=== PATIENT | male | born 1960 | race African-American/Black ===

== ENCOUNTER 2017-04-25 08:53 | Emergency (ER) | payer OTHER ==
[2017-04-25 09:00] VITALS: BP 155/81; PULSE 63; TEMP 98; BMI 35.9
[2017-04-25] MEDS ORDERED: IBUPROFEN 600 MG TABLET (FP) PO ONE ×2 (09:50→09:53)
--- NOTE | 2017-04-25 09:50 | PDOC ---
History of Present Illness - General Chief Complaint: Pain Stated Complaint: LT WRIST PAIN Time Seen by Provider: 04/25/17 09:02 Past History - Past Medical History Allergies/Adverse Reactions: Allergies Allergy/AdvReac Type Severity Reaction Status Date / Time No Known Allergies Allergy Verified 04/25/17 09:00 Home Medications: Ambulatory Orders Indomethacin 25 mg PO TID #21 capsule 04/25/17 HTN: Yes Hypercholesterolemia: Yes - Psycho/Social/Smoking Cessation Hx Suicidal Ideation: No Smoking History: Never smoked Information on smoking cessation initiated: No Hx Alcohol Use: No Drug/Substance Use Hx: No Substance Use Type: None *Physical Exam - Vital Signs Last Vital Signs Temp Pulse Resp BP Pulse Ox 98 F 63 18 155/81 99 04/25/17 08:58 04/25/17 08:58 04/25/17 08:58 04/25/17 08:58 04/25/17 08:58 ED Treatment Course - LABORATORY CBC & Chemistry Diagram: 04/25/17 10:00 *DC/Admit/Observation/Transfer Diagnosis at time of Disposition: Gout of left wrist Qualifiers: Gout etiology: unspecified cause Chronicity: acute Qualified Code(s): M10.9 - Gout, unspecified - Discharge Dispostion Disposition: HOME Condition at time of disposition: Good Admit: No - Prescriptions Prescriptions: Indomethacin 25 mg PO TID #21 capsule - Referrals Referrals: Steven Barnes MD [Primary Care Provider] - Soham Escalera MD [Staff Physician] - - Patient Instructions Printed Discharge Instructions: DI for Gout, Low-Purine Diet Additional Instructions: You have a gout flare in your L wrist. Your uric acid level was high today. You were prescribed indomethacin. Take it as prescribed for the next week. Take this medication with food. You were also given a wrist brace. Wear it to help relieve your symptoms. You may also use heat or ice to help with the pain ( whichever is more comfortable to you.) You need to follow up with your primary care doctor next week. Return to the ED if you have worsening wrist pain, fevers, chills, stomach pain , nausea, vomiting, or any changes in your symptoms. - Post Discharge Activity Work/School Note: Back to Work
[2017-04-25] MEDS ORDERED: KETOROLAC TROMETHAMINE 60 MG/2 ML VIAL IM ONE (09:56)
[2017-04-25] MEDS ORDERED: KETOROLAC TROMETHAMINE 60 MG/2 ML VIAL ONE (10:00)
[2017-04-25 10:07] LABS: BASOPHIL 0.8 % (0-2.0); EOSINOPHIL 1.7 % (0-4.5); MCH 29.6 pg (25.7-33.7); MCHC 33.3 g/dl (32.0-35.9); MEAN PLT VOLUME 8.6 fl (7.5-11.1); NEUTROPHILS 64.2 % (42.8-82.8); PLATELET COUNT 183 K/MM3 (134-434); RDW 14.7 % (11.9-15.9); WHITE BLOOD COUNT 6.3 K/mm3 (4.0-10.0)
[2017-04-25 10:36] LABS: C-REACTIVE PROTEIN 2.1 MG/DL (0.00-0.3); URIC ACID 7.3 mg/dL (2.6-7.2)
== END 2017-04-25 11:26 | disposition home or self-care (01) ==
LOC: JERFT 08:53
PROC: 3E0233Z Introduction of Anti-inflammatory into Muscle, Percutaneous Approach (ICD-10-PCS; principal; 2017-04-25)
DX: M10.9 Gout, unspecified (principal); I10 Essential (primary) hypertension; E78.00 Pure hypercholesterolemia, unspecified
CPT/HCPCS: 36415; 73110-TC-LT; 73130-TC-LT; 84550; 85025; 85651; 86140; 99282-25

== ENCOUNTER 2020-10-13 04:44 | Day surgery (SDC) | payer OTHER ==
[2020-10-10 14:04] VITALS: BMI 37.0
[2020-10-13] MEDS ORDERED: LIDOCAINE 1%/EPI 1:100000 (50 ML MULTI DOSE VIAL) ONE (09:22)
[2020-10-13] MEDS ORDERED: DEXAMETHASONE SOD PHOSPHATE 4 MG/1 ML VIAL ONE (10:22)
[2020-10-13] MEDS ORDERED: ceFAZolin SODIUM 1 GM VIAL ONE (10:22)
[2020-10-13] MEDS ORDERED: MIDAZOLAM HCL 2 MG/2 ML SINGLE DOSE VIAL ONE (10:22)
[2020-10-13] MEDS ORDERED: LIDOCAINE HCL/PF 2% SDV 5ML VIAL ONE (10:22)
[2020-10-13] MEDS ORDERED: LIDOCAINE HCL 2% JELLY (5 ML/TUBE) ONE (10:22)
[2020-10-13] MEDS ORDERED: PROPOFOL 20 ML ONE ×2 (10:22→11:49)
[2020-10-13] MEDS ORDERED: fentaNYL CITRATE 250 MCG/5 ML VIAL ONE (10:23)
[2020-10-13] MEDS ORDERED: ceFAZolin SODIUM 1 GM VIAL IVPB ONE (11:00)
[2020-10-13] MEDS ORDERED: LIDOCAINE 1%/EPI 1:100000 (50 ML MULTI DOSE VIAL) INF ONE (11:05)
[2020-10-13] MEDS ORDERED: ONDANSETRON 4 MG/2 ML VIAL IVPUSH PRN (11:16)
[2020-10-13] MEDS ORDERED: oxyCODONE HCL 5 MG TABLET PO PRN (11:16)
[2020-10-13] MEDS ORDERED: LACTATED RINGERS SOLUTION 1,000 ML IV SCH (11:30)
[2020-10-13 14:04] VITALS: BP 117/67; PULSE 24; TEMP 97.6
== END 2020-10-13 14:15 | disposition home or self-care (01) ==
LOC: JASU-SURG 04:44
PROVIDERS: ATTEND Surgery
PROC: 0JB70ZZ Excision of Back Subcutaneous Tissue and Fascia, Open Approach (ICD-10-PCS; principal; 2020-10-13 10:30)
DX: D21.6 Benign neoplasm of connective and other soft tissue of trunk, unspecified (principal); E11.9 Type 2 diabetes mellitus without complications; I10 Essential (primary) hypertension
CPT/HCPCS: 82962; 88304-TC; 94760